=== PATIENT | female | born 2000 | race Two or more races ===

== ENCOUNTER 2020-04-12 16:40 | Inpatient (IN) | payer BC, MEDICAID ==
[~2020-04-12] VITALS: Ht 167.6 cm; Wt 117.9 kg
[2020-04-12] MEDS ORDERED: LACT. RINGERS/OXYTOCIN 20UNITS 1,000 ML IV SCH (16:57)
[2020-04-12] MEDS ORDERED: PHISODERM TOP SOLN 240ML BTL TOP PRN (17:00)
[2020-04-12] MEDS ORDERED: WITCH HAZEL-GLYCERIN PAD TOP PRN (17:00)
[2020-04-12] MEDS ORDERED: DERMOPLAST 60ML BOTTLE TOP PRN (17:00)
[2020-04-12] MEDS ORDERED: LIDOCAINE 2%HCL (LOCAL ANESTH.) INJ 20ML MDV ID ONE (17:00)
[2020-04-12] MEDS ORDERED: CLINDAMYCIN 900MG IV 50 ML IV SCH (17:30)
[2020-04-12] MEDS ORDERED: ONDANSETRON HCL 4 MG/2 ML VIAL IV PRN (17:30)
[2020-04-12] MEDS ORDERED: BUTORPHANOL TARTRATE 2 MG/1 ML VIAL IV PRN (17:30)
[2020-04-12 17:52] LABS: Basophils # (auto) 0 10 ^3/uL (0-0.2); Eosinophils # (auto) 0.1 10 ^3/uL (0-0.8); Mean Corpuscular Volume 81.6 fL (80.0-100.0)
[2020-04-12 17:55] LABS: Basophils % (auto) 0.1 % (0.0-2.0); Eosinophils % (auto) 0.5 % (0.0-7.0); Hematocrit 35.4 % (36.0-46.0); Hemoglobin 11.4 g/dL (12.2-16.2); Lymphocytes # (auto) 1.4 10 ^3/uL (0.4-5.4); Lymphocytes % (auto) 11.1 % (10.0-50.0); Mean Corpuscular Hemoglobin 26.3 pg (28.0-32.0); Mean Corpuscular Hgb Conc. 32.3 g/dL (32.0-36.0); Monocytes % (auto) 7.8 % (0.0-12.0); Neutrophils % (auto) 80.5 % (37.0-80.0); Nucleated Red Blood Cells % 0.1 %; Platelet Count (auto) 178 10^3/uL (140-450); Red Blood Cells 4.33 10^6/uL (4.0-5.20); Red Cell Distribution Width 15.9 % (11.8-14.3); White Blood Cell 12.4 10^3/uL (4.4-10.8)
[2020-04-12 18:09] LABS: INR 0.96 (0.9-1.15)
[2020-04-12 18:10] LABS: Albumin 2.6 g/dL (3.4-5.0); Calcium 8.5 mg/dL (8.5-10.1); Potassium 3.8 mmol/L (3.5-5.1)
[2020-04-12 18:13] LABS: BUN/Creatinine Ratio 13.2; Bilirubin, Total 0.3 mg/dL (0.2-1.0); Total Protein 7.4 g/dL (6.4-8.2); Uric Acid 5.1 mg/dL (2.6-6.0)
[2020-04-12] MEDS ORDERED: fentaNYL CITRATE 100 MCG/2 ML VL EPI ONE (18:45)
[2020-04-12] MEDS ORDERED: NALOXONE HCL 0.4 MG/ML VIAL IV ONE (18:45)
[2020-04-12] MEDS ORDERED: ePHEDrine SULFATE 50 MG/ML AMP IV ONE (18:45)
[2020-04-12] MEDS ORDERED: LIDOCAINE HCL 2 %PF INJ 10ML AMP IJ ONE (18:45)
[2020-04-12] MEDS ORDERED: ROPIVACAINE HCL 100 ML EPI SCH (18:45)
[2020-04-12] MEDS: LACTATED RINGER'S 1,000 ML IV SCH (19:11)
[2020-04-12 21:24] LABS: Urine Bacteria FEW /hpf (None Seen); Urine Blood Negative /uL (Negative); Urine Mucus FEW (None Seen); Urine Specific Gravity 1.023 (1.001-1.035); Urine WBC 3 /hpf (0 - 5)
[2020-04-12 21:36] LABS: Alcohol, Urine < 3.0 mg/dL (0-10); Amphetamine Screen, Urine NEGATIVE (NEGATIVE); Barbiturate Scree,Urine NEGATIVE (NEGATIVE); Benzodiazephine Screen, Urine NEGATIVE (NEGATIVE); Cannabinoid Screen, Urine NEGATIVE (NEGATIVE); Cocaine Screen, Urine NEGATIVE (NEGATIVE); Opiate Scree,Urine NEGATIVE (NEGATIVE); Phencyclidine Screen, Urine NEGATIVE (NEGATIVE)
[2020-04-12 23:00] VITALS: BP 106/56
--- NOTE | 2020-04-12 23:58 | NUR ---
[facility] Charge Nurse, Elizabeth who explains that she is unauthorized to fax over records despite receiving the Maternal Release of Medical Records. [place] Charge Nurse states the following: Mother's Lab results: GBS Negative A+ Hepatitis B Negative RPR None Reactive HIV Negative
--- NOTE | 2020-04-13 | NUR ---
Ambulation: Patient OOB with standby assistance by RN. Patient ambulated to bathroom with steady gait. Patient able to void without difficulty. [facility] teaching provided with returned demonstration by patient. Clean gown provided and bed linen changed. Patient ambulated back to bed with steady gait and no distress noted.
[2020-04-13] MEDS: LACTATED RINGER'S 1,000 ML IV SCH (00:57)
[2020-04-13] MEDS ORDERED: ACETAMINOPHEN 325 MG TAB PO PRN (01:15)
[2020-04-13] MEDS: IBUPROFEN 600 MG TAB PO PRN ×3 (01:24→19:04)
[2020-04-13 03:00] VITALS: BP 121/57
[2020-04-13] MEDS ORDERED: PREN-153 OR (04:12)
[2020-04-13] MEDS ORDERED: FERR-7 PO (04:12)
[2020-04-13 07:00] VITALS: BP 110/60
[2020-04-13 10:30] VITALS: BP 126/68
[2020-04-13 15:00] VITALS: BP 119/68
[2020-04-13 19:00] VITALS: BP 120/66
--- NOTE | 2020-04-13 21:29 | NUR ---
IV removal IV DC'd with clean technique, catheter fully intact. Pressure dressing applied to site. Patient tolerated well. NOTE:
[2020-04-13 23:00] VITALS: BP 130/64
[2020-04-14] MEDS: IBUPROFEN 600 MG TAB PO PRN (01:27)
[2020-04-14 03:00] VITALS: BP 122/67
[2020-04-14 06:17] LABS: RPR Non Reactive (Non Reactive)
[2020-04-14 07:30] VITALS: BP 134/78
[2020-04-14 10:30] VITALS: BP 133/62
--- NOTE | 2020-04-14 10:41 | NUR ---
Discharge: Discharge instructions given as ordered. Pt encouraged to follow up with [facility] as instructed. All questions and concerns addressed. Patient verbalized understanding. Medication reconciliation completed and copy given to patient. Patient encouraged to prepare to depart unit.
--- NOTE | 2020-04-14 11:07 | NUR ---
Discharge: Patient taken to vehicle via wheelchair with all personal belongings, accompanied by staff and family member. No distress noted at time of departure, no adverse changes in status since initial assessment.
== END 2020-04-14 11:07 | disposition home or self-care (01) | DRG 560 ==
LOC: OBSVTOIN 16:40 → LDRP 16:40
PROVIDERS: ADMIT Specialist; ATTEND Specialist
PROC: 10E0XZZ Delivery of Products of Conception, External Approach (ICD-10-PCS; principal; 2020-04-12)
PROC: 3E0R3BZ Introduction of Anesthetic Agent into Spinal Canal, Percutaneous Approach (ICD-10-PCS; 2020-04-12)
PROC: 00HU33Z Insertion of Infusion Device into Spinal Canal, Percutaneous Approach (ICD-10-PCS; 2020-04-12)
DX: O71.82 Other specified trauma to perineum and vulva (principal); Z37.0 Single live birth; Z3A.38 38 weeks gestation of pregnancy; Z88.0 Allergy status to penicillin; Z11.59 Encounter for screening for other viral diseases
CPT/HCPCS: 36415; 59025; 59409; 62282; 80053; 80307; 81001; 81002; 84112; 84550; 85025; 85610; 85730; 86592; 86703; 86762; 86850; 86900; 86901; 87340; 94760; 96360; 96361; 96365; G0378; J2405; J2590; J3490